=== PATIENT | female | born 1975 | race African-American/Black ===

== ENCOUNTER 2022-08-16 03:21 | Inpatient (IN) | payer MEDICAID ==
[~2022-08-16] VITALS: Ht 162.6 cm; Wt 104.4 kg
[2022-08-16 04:33] LABS: CLARITY URINE CLEAR (CLEAR); COLOR URINE YELLOW (YELLOW); KETONES URINE TRACE (NEGATIVE); LEUKOCYTE ESTERASE URINE NEGATIVE (NEGATIVE); NITRITE URINE NEGATIVE (NEGATIVE); OCCULT BLOOD URINE NEGATIVE (NEGATIVE); PH URINE 5.5 (4.5-8.0); PROTEIN URINE 3+ (NEGATIVE); SPECIFIC GRAVITY URINE 1.023 (1.005-1.030)
[2022-08-16 04:43] LABS: *BARBITURATES SCREEN URINE NEGATIVE (NEGATIVE); *BENZODIAZEPINES SCREEN URINE NEGATIVE (NEGATIVE); *COCAINE SCREEN URINE NEGATIVE (NEGATIVE); CANNABINOID URINE SCREEN NEGATIVE (NEGATIVE); METHADONE URINE SCREEN NEGATIVE (NEGATIVE); PHENCYCLIDINE URINE SCREEN NEGATIVE (NEGATIVE)
[2022-08-16 04:47] LABS: *AMPHETAMINES SCREEN URINE PRESUMTIVE POSITIVE (NEGATIVE); OPIATES URINE SCREEN PRESUMTIVE POSITIVE (NEGATIVE)
[2022-08-16 05:16] LABS: HEMATOCRIT. 33.2 % (36.0-48.0); HEMOGLOBIN. 10.5 g/dL (12.0-16.0); MEAN CORPUSCULAR VOLUME 88.3 fL (81.0-99.0); MEAN PLATELET VOLUME 8.4 fl (7.4-10.4); PLATELET 341 x1000/uL (130-400); RED BLOOD CELL COUNT 3.76 mill/uL (4.2-5.4); RED CELL DISTRIBUTION WIDTH 19.6 % (11.6-14.6)
[2022-08-16 05:33] LABS: PLATELET ESTIMATE NORMAL
[2022-08-16] MEDS ORDERED: ONDANSETRON HCL 4MG/2ML INJ IV STA (05:34)
[2022-08-16] MEDS ORDERED: KETOROLAC 30MG/ML VIAL IV STA (05:34)
[2022-08-16 05:40] LABS: CHLORIDE 100 mEq/L (98-107)
[2022-08-16 05:50] LABS: ETHANOL BLOOD < 10 mg/dL
[2022-08-16] MEDS ORDERED: HYDROMORPHONE HCL/PF 2MG/ML CPJ IV ONE (06:00)
[2022-08-16] MEDS ORDERED: IOHEXOL-300 100 ML BOTTLE ONE (07:16)
[2022-08-16] MEDS ORDERED: NITROGLYCERIN OINT 1GM/INCH UDPKT TD ONE (09:30)
[2022-08-16] MEDS ORDERED: ASPIRIN 325MG EC TABLET PO ONE (09:30)
[2022-08-16] MEDS ORDERED: FUROSEMIDE 40MG/4ML VIAL IVP ONE (09:30)
[2022-08-16] MEDS ORDERED: GUAIFENESIN 200MG/10ML SUGAR FREE UDC PO PRN (14:00)
[2022-08-16] MEDS ORDERED: DOCUSATE SODIUM 100MG CAPSULE PO PRN (14:00)
[2022-08-16] MEDS ORDERED: MAGNESIUM/ALUMINUM HYDROXIDE/SIMETHICONE 30ML UDC PO PRN (14:00)
[2022-08-16] MEDS ORDERED: ONDANSETRON HCL 4MG/2ML INJ IV PRN (14:00)
[2022-08-16] MEDS: AMLODIPINE 10MG TABLET PO SCH (14:08)
[2022-08-16] MEDS: ACETAMINOPHEN 325MG TABLET PO PRN ×2 (14:09→21:05)
[2022-08-16] MEDS: CLONIDINE 0.1MG TABLET PO PRN (14:09)
[2022-08-16] MEDS ORDERED: NALOXONE HCL 0.4MG/ML VIAL IV PRN (14:15)
[2022-08-16 14:40] VITALS: BP 153/115
[2022-08-16] MEDS ORDERED: ENOXAPARIN 40MG/0.4ML SYR SUBCUT SCH (15:00)
[2022-08-16 16:00] VITALS: BP 137/94
[2022-08-16] MEDS ORDERED: ENOXAPARIN 30MG/0.3ML SYR SUBCUT NR (17:00)
[2022-08-16] MEDS ORDERED: KETOROLAC 15MG/ML VIAL IV PRN (18:45)
[2022-08-16 20:00] VITALS: BP 140/91
[2022-08-16] MEDS: HYDRALAZINE HCL 25MG TABLET PO SCH (21:05)
[2022-08-16] MEDS ORDERED: HYDRALAZINE HCL 25MG TABLET PO SCH (22:00)
[2022-08-17] VITALS: BP 160/118
[2022-08-17 04:00] VITALS: BP 148/102
[2022-08-17] MEDS: TRAMADOL 50MG TABLET PO PRN ×2 (04:30→08:19)
[2022-08-17] MEDS: HYDRALAZINE HCL 25MG TABLET PO SCH (05:00)
[2022-08-17] MEDS: CLONIDINE 0.1MG TABLET PO PRN (05:01)
[2022-08-17 07:44] LABS: BASOPHILS % 2.5 % (0.0-2.0); EOSINOPHILS % 1.4 % (0.0-5.0); HEMATOCRIT. 31.7 % (36.0-48.0); HEMOGLOBIN. 9.7 g/dL (12.0-16.0); LYMPHOCYTES % 17.9 % (20.0-50.0); MEAN CORPUSCULAR HEMOGLOBIN 27.2 pg (28.0-32.0); MEAN CORPUSCULAR VOLUME 88.5 fL (81.0-99.0); MEAN PLATELET VOLUME 8.4 fl (7.4-10.4); MONOCYTES % 12.2 % (2.0-8.0); PLATELET 321 x1000/uL (130-400); RED BLOOD CELL COUNT 3.58 mill/uL (4.2-5.4); RED CELL DISTRIBUTION WIDTH 19.4 % (11.6-14.6)
[2022-08-17 08:00] VITALS: BP 147/85
[2022-08-17 08:03] LABS: CHLORIDE 98 mEq/L (98-107)
[2022-08-17 08:12] LABS: LDL CHOLESTEROL 51 mg/dL (5-100)
[2022-08-17 08:21] LABS: HDL CHOLESTEROL 27 mg/dL (40-59)
[2022-08-17] MEDS ORDERED: FUROSEMIDE 40MG/4ML VIAL IV SCH (09:00)
[2022-08-17] MEDS: AMLODIPINE 10MG TABLET PO SCH (09:06)
[2022-08-17 09:54] VITALS: BP 147/85
[2022-08-17] MEDS ORDERED: HEPARIN 25,000 UNITS PREMIX 250 ML IV SCH (13:15)
== END 2022-08-17 12:05 | disposition home or self-care (01) | DRG 251 ==
LOC: ER 03:21 → MICUSO 09:29 → EDBEDREQ 09:37 → 7WST 13:54
PROVIDERS: ADMIT Hospitalist; ATTEND Hospitalist
DX: R10.31 Right lower quadrant pain (principal); I42.0 Dilated cardiomyopathy; E44.1 Mild protein-calorie malnutrition; N17.9 Acute kidney failure, unspecified; I13.0 Hypertensive heart and chronic kidney disease with heart failure and stage 1 through stage 4 chronic kidney disease, or unspecified chronic kidney disease; I50.9 Heart failure, unspecified; I48.92 Unspecified atrial flutter; Z20.822 Contact with and (suspected) exposure to COVID-19; E78.5 Hyperlipidemia, unspecified; I25.10 Atherosclerotic heart disease of native coronary artery without angina pectoris; J44.9 Chronic obstructive pulmonary disease, unspecified; I11.0 Hypertensive heart disease with heart failure; Z79.01 Long term (current) use of anticoagulants; Z95.1 Presence of aortocoronary bypass graft; Z95.3 Presence of xenogenic heart valve; Z95.5 Presence of coronary angioplasty implant and graft; Z68.39 Body mass index [BMI] 39.0-39.9, adult
CPT/HCPCS: 36415; 71045; 74177; 80053; 80061; 80305; 80320; 81003; 83880; 84484; 85025; 87426; 93005; 93306; 99291; C1893; C9803; J1170; J1650; J1885; J1940; J2405; Q9967; G0480

== ENCOUNTER 2022-08-17 14:25 | Emergency (ER) | payer MEDICAID ==
[~2022-08-17] VITALS: Ht 175.3 cm; Wt 85.0 kg
[2022-08-17 14:29] VITALS: BP 142/105
== END 2022-08-18 07:22 | disposition home or self-care (01) ==
LOC: ER 14:25
DX: L97.528 Non-pressure chronic ulcer of other part of left foot with other specified severity (principal); L97.518 Non-pressure chronic ulcer of other part of right foot with other specified severity; J44.9 Chronic obstructive pulmonary disease, unspecified; I11.0 Hypertensive heart disease with heart failure; I50.9 Heart failure, unspecified; Z59.00 Homelessness unspecified
CPT/HCPCS: 99281